=== PATIENT | male | born 1985 | race Caucasian/White ===

== ENCOUNTER 2025-01-26 09:20 | Inpatient (IN) | payer SELFPAY ==
[~2025-01-26] VITALS: Ht 193 cm; Wt 98.1 kg
[2025-01-26] VITALS (7 sets, daily range): BP systolic 116–148; BP diastolic 78–99; PULSE 127–160; RESP 16–20; TEMP 36.9–37.1; O2SAT 96–98
[2025-01-26 09:42] LABS: BASOPHILS % 0.8 % (0.0-2.0); EOSINOPHILS % 0.1 % (0.0-5.0); HEMATOCRIT. 50.3 % (42.0-52.0); HEMOGLOBIN. 16.8 g/dL (14.0-18.0); LYMPHOCYTES % 20.4 % (20.0-50.0); MEAN PLATELET VOLUME 7.4 fl (7.4-10.4); MONOCYTES % 9.4 % (2.0-8.0); NEUTROPHILS % 69.3 % (40.0-76.0); PLATELET 351 x1000/uL (130-400); RED BLOOD CELL COUNT 4.85 mill/uL (4.7-6.1); RED CELL DISTRIBUTION WIDTH 14.8 % (11.6-14.6)
[2025-01-26] MEDS: ADENOSINE 3 MG/ML 2ML VIAL IV ONE ×2 (09:49)
[2025-01-26] MEDS: DILTIAZEM HCL 5MG/ML 5ML VIAL IV ONE (09:54)
[2025-01-26 10:01] LABS: CREATININE 1.3 mg/dL (0.6-1.3); UREA NITROGEN BLOOD 11 mg/dL (9-23)
[2025-01-26 10:02] LABS: TROPONIN I HIGH SENSITIVITY 5 ng/L (3.0-53)
[2025-01-26] MEDS: SODIUM CHLORIDE 0.9% 1,000 ML IV ONE (10:39)
[2025-01-26] MEDS: LORAZEPAM 2MG/ML UD SYRINGE IV NR (10:42)
[2025-01-26] MEDS: DILTIAZEM HCL 125 MG in DEXT 5% WATER 100 ML IV SCH (11:07)
[2025-01-26] MEDS ORDERED: LORAZEPAM 1MG TABLET PO PRN (11:45)
[2025-01-26] MEDS ORDERED: DEXTROSE 50% WATER 50ML SYRINGE IV PRN (11:45)
[2025-01-26] MEDS ORDERED: GUAIFENESIN 200MG/10ML SUGAR FREE UDC PO PRN (11:45)
[2025-01-26] MEDS ORDERED: IPRATROPIUM/ALBUTEROL 0.5-3(2.5)MG/3ML NEB HHN PRN (11:45)
[2025-01-26] MEDS ORDERED: ACETAMINOPHEN 325MG TABLET PO PRN ×2 (11:45)
[2025-01-26] MEDS ORDERED: ONDANSETRON HCL 4MG/2ML INJ IV PRN (11:45)
[2025-01-26] MEDS ORDERED: CLONIDINE 0.1MG TABLET PO PRN (11:45)
[2025-01-26] MEDS: FOLIC ACID 1MG TABLET PO SCH (12:12)
[2025-01-26] MEDS: POTASSIUM CHLORIDE 20MEQ TABLET SR PO NR (12:12)
[2025-01-26] MEDS: MULTIVITAMINS,THER W-MINERALS TABLET PO SCH (12:12)
[2025-01-26 12:15] LABS: ETHANOL BLOOD 34 mg/dL (<10)
[2025-01-26 12:17] LABS: PHOSPHORUS 4.2 mg/dL (2.5-4.9)
[2025-01-26 12:19] LABS: T4 FREE 1.28 ng/dL (0.89-1.76)
[2025-01-26 12:42] LABS: INR 1.0
[2025-01-26] MEDS ORDERED: AMIODARONE HCL 900 MG in DEXT 5% WATER 482 ML IV SCH (12:45)
[2025-01-26] MEDS: MVI, ADULT NO.1 10 ML, THIAMINE HCL 100 MG, FOLIC ACID 1 MG in SODIUM CHLORIDE 0.9% 1,0... IV SCH (12:50)
[2025-01-26] MEDS: THIAMINE HCL 100 MG/1 ML 2ML VIAL IM SCH (12:50)
[2025-01-26 12:54] LABS: FOLIC ACID (FOLATE) SERUM > 20.00 ng/mL (>5.38); VITAMIN B12 SERUM 450 pg/mL (211-911)
[2025-01-26] MEDS: DIGOXIN 500MCG/2ML AMP IV NR (12:59)
[2025-01-26] MEDS: BLOOD SUGAR DIAGNOSTIC STRIP TEST SCH (13:01)
[2025-01-26] MEDS: AMIODARONE 360MG/200ML 200 ML IV ONE (13:15)
[2025-01-26] MEDS: INSULIN LISPRO 100 UNITS/ML SUBCUT SCH (13:20)
[2025-01-26 13:31] LABS: CREATINE KINASE MB FRACTION 10.8 ng/mL (0.5-3.6); TROPONIN I HIGH SENSITIVITY 24.0 ng/L (3.0-53)
[2025-01-26] MEDS: PANTOPRAZOLE SODIUM 40 MG/VIAL IV SCH (15:30)
[2025-01-26] MEDS ORDERED: LABETALOL 5MG/ML 4ML INJ IV PRN (16:00)
[2025-01-26 17:57] LABS: CLARITY URINE CLEAR (CLEAR); COLOR URINE DARK YELLOW (YELLOW); GLUCOSE URINE NEGATIVE (NEGATIVE); KETONES URINE TRACE (NEGATIVE); LEUKOCYTE ESTERASE URINE NEGATIVE (NEGATIVE); NITRITE URINE NEGATIVE (NEGATIVE); OCCULT BLOOD URINE NEGATIVE (NEGATIVE); PH URINE 7.0 (4.5-8.0); PROTEIN URINE 2+ (NEGATIVE); SPECIFIC GRAVITY URINE 1.015 (1.005-1.030); UROBILINOGEN URINE 1.0 E.U./dL (0.2-1.0)
[2025-01-26 18:11] LABS: BACTERIA URINE RARE; RBC URINE NONE SEEN /hpf (0-2); SQUAMOUS EPITHELIAL CELL URINE NONE SEEN /lpf (RARE/1+); WBC URINE 0-2 /hpf (0-2)
[2025-01-26 18:14] LABS: *AMPHETAMINES SCREEN URINE NEGATIVE (NEGATIVE); *BARBITURATES SCREEN URINE NEGATIVE (NEGATIVE); *BENZODIAZEPINES SCREEN URINE NEGATIVE (NEGATIVE); *COCAINE SCREEN URINE NEGATIVE (NEGATIVE); CANNABINOID URINE SCREEN PRESUMPTIVE POSITIVE (NEGATIVE); METHADONE URINE SCREEN NEGATIVE (NEGATIVE); OPIATES URINE SCREEN NEGATIVE (NEGATIVE); PHENCYCLIDINE URINE SCREEN NEGATIVE (NEGATIVE)
[2025-01-26 18:15] LABS: ECSTASY MDMA SCREEN URINE NEGATIVE (NEGATIVE)
[2025-01-26] MEDS: AMIODARONE 360MG/200ML 200 ML IV SCH (20:09)
[2025-01-26] MEDS: DIGOXIN 500MCG/2ML AMP IV SCH (20:42)
[2025-01-26 22:26] LABS: CREATININE 0.7 mg/dL (0.6-1.3); UREA NITROGEN BLOOD 8 mg/dL (9-23)
[2025-01-26 23:06] LABS: HEPATITIS C AB NON REACTIVE (Neg) (Negative)
[2025-01-26] MEDS ORDERED: IOHEXOL-350 100 ML BOTTLE ONE (23:06)
[2025-01-26 23:09] LABS: CREATINE KINASE MB FRACTION 12.4 ng/mL (0.5-3.6); TROPONIN I HIGH SENSITIVITY 31.0 ng/L (3.0-53)
[2025-01-27] VITALS (8 sets, daily range): BP systolic 128–137; BP diastolic 80–108; PULSE 79–149; RESP 12–19; TEMP 36.4–37.6; O2SAT 96–97
[2025-01-27 05:51] LABS: CREATININE 0.6 mg/dL (0.6-1.3); TRIGLYCERIDE 117 mg/dL (0-150)
[2025-01-27 05:52] LABS: LDL CHOLESTEROL 102 mg/dL (5-100); UREA NITROGEN BLOOD 8 mg/dL (9-23)
[2025-01-27 05:54] LABS: PHOSPHORUS 2.6 mg/dL (2.5-4.9)
[2025-01-27 06:25] LABS: PLATELET 229 x1000/uL (130-400); RED BLOOD CELL COUNT 4.38 mill/uL (4.7-6.1); RED CELL DISTRIBUTION WIDTH 14.5 % (11.6-14.6)
[2025-01-27] MEDS: POTASSIUM CHLORIDE 20MEQ TABLET SR PO SCH (07:45)
[2025-01-27] MEDS: KCL 20MEQ/100ML PREMIX 100 ML IV SCH (09:12)
[2025-01-27] MEDS: SODIUM CHLORIDE 0.9% 1,000 ML IV SCH (09:12)
[2025-01-27] MEDS: ENOXAPARIN 100MG/ML SYR SUBCUT SCH (09:15)
[2025-01-27 09:23] LABS: BG BASE EXCESS 1.0 mmol/L (-2.0-3.0); BG CARBOXYHEMOGLOBIN 1.3 % (0.5-1.5); BG DEOXYHEMOGLOBIN 2.7 % (0.0-5.0); BG FRACTION INSPIRED OXYGEN 21; BG HCO3 ACT 23.6 mmol/L (21.0-28.0); BG METHEMOGLOBIN 0.1 % (0.5-1.5); BG OXYGEN SATURATION 97.3 % (94.0-98.0); BG OXYHEMOGLOBIN 95.9 % (94.0-98.0); BG PCO2 32.4 mmHg (35.0-48.0); BG PH 7.480 (7.350-7.450); BG PO2 87.7 mmHg (83.0-108.0); BG SAMPLE SITE RIGHT BRACHIAL; BG TOTAL HEMOGLOBIN 16.2 g/dL (13.5-17.5); BG VENT MODE ROOM AIR
[2025-01-27 11:48] LABS: TRIGLYCERIDE 86.0 mg/dL (0-150)
[2025-01-27 11:49] LABS: LDL CHOLESTEROL 105.0 mg/dL (5-100)
[2025-01-27 11:53] LABS: T4 FREE 1.34 ng/dL (0.89-1.76)
[2025-01-27] MEDS ORDERED: CHLORDIAZEPOXIDE 25MG CAPSULE PO SCH (14:00)
[2025-01-28] MEDS ORDERED: FAMOTIDINE 20MG TABLET PO SCH (09:00)
[2025-01-29] MEDS ORDERED: THIAMINE HCL 100MG TABLET PO SCH (09:00)
== END 2025-01-27 13:22 | disposition left against medical advice (07) | DRG 52 ==
LOC: ER 09:57 → EDBEDREQTM 11:21 → EDBEDREQ 11:21 → EDBEDREQSVC 11:21 → ENRESERV 13:39 → 5EST 14:02
PROVIDERS: ADMIT Internal Medicine; ATTEND Internal Medicine
DX: G92.8 Other toxic encephalopathy (principal); E87.20 Acidosis, unspecified; M62.82 Rhabdomyolysis; R56.9 Unspecified convulsions; E05.90 Thyrotoxicosis, unspecified without thyrotoxic crisis or storm; E78.5 Hyperlipidemia, unspecified; F10.139 Alcohol abuse with withdrawal, unspecified; F17.210 Nicotine dependence, cigarettes, uncomplicated; I10 Essential (primary) hypertension; I48.91 Unspecified atrial fibrillation; D75.89 Other specified diseases of blood and blood-forming organs; F19.90 Other psychoactive substance use, unspecified, uncomplicated; I51.7 Cardiomegaly; Y90.1 Blood alcohol level of 20-39 mg/100 ml; Z53.29 Procedure and treatment not carried out because of patient's decision for other reasons
CPT/HCPCS: 36415; 36600; 71045; 71275; 80048; 80061; 80162; 80305; 80320; 81003; 82010; 82140; 82375; 82550; 82553; 82607; 82746; 82805; 82962; 83036; 83605; 83735; 83880; 84100; 84145; 84439; 84443; 84484; 85025; 85027; 85379; 86705; 87340; 93005; 93970; A4606; J0153; J0282; J1160; J1650; J2060; J2470; J3411; J3480; J3490; J7030; J7060; Q9967; G0480